=== PATIENT | female | born 1995 | race Caucasian/White ===

== ENCOUNTER 2017-06-26 00:58 | Inpatient (IN) | payer OTHER ==
[~2017-06-26] VITALS: Ht 157.5 cm; Wt 62.6 kg
[~2017-06-26 00:58] MED LIST: DICY20TA PO; PREVACID30 MG PO; URETRON DS1 TAB PO
[2017-06-26] MEDS ORDERED: PRENATAL 19 TA1 EACH PO (02:54)
== END 2017-06-27 09:27 | disposition home or self-care (01) | DRG 778 ==
LOC: OBS/DEL 00:58 → LDR 15:14
PROC: BY4FZZZ Ultrasonography of Third Trimester, Single Fetus (ICD-10-PCS; principal; 2017-06-26)
PROC: BU4CZZZ Ultrasonography of Uterus and Ovaries (ICD-10-PCS; 2017-06-26)
PROC: 4A1HXCZ Monitoring of Products of Conception, Cardiac Rate, External Approach (ICD-10-PCS; 2017-06-26)
DX: O20.0 Threatened abortion (principal); Z3A.32 32 weeks gestation of pregnancy; O26.893 Other specified pregnancy related conditions, third trimester; K29.00 Acute gastritis without bleeding

== ENCOUNTER 2021-01-27 16:20 | Outpatient (CLI) | payer OTHER ==
[~2021-01-27 16:20] MED LIST changes: +PRENATAL 19 TA1 EACH PO
== END 2021-01-27 16:50 | disposition home or self-care (01) ==
LOC: NST 16:20
PROVIDERS: ATTEND Specialist
DX: Z34.83 Encounter for supervision of other normal pregnancy, third trimester (principal)

== ENCOUNTER 2021-01-29 18:28 | Outpatient (CLI) | payer OTHER | END 2021-01-30 11:55 | disposition home or self-care (01) | LOC: OBS/DEL 18:28 | PROVIDERS: ATTEND Specialist | DX: O47.1 False labor at or after 37 completed weeks of gestation (principal); O24.410 Gestational diabetes mellitus in pregnancy, diet controlled; O23.33 Infections of other parts of urinary tract in pregnancy, third trimester; N39.0 Urinary tract infection, site not specified; O99.820 Streptococcus B carrier state complicating pregnancy; O34.211 Maternal care for low transverse scar from previous cesarean delivery; Z3A.37 37 weeks gestation of pregnancy; Z20.822 Contact with and (suspected) exposure to COVID-19 ==

== ENCOUNTER 2021-02-08 06:47 | Inpatient (IN) | payer OTHER ==
[~2021-02-08] VITALS: Ht 157.5 cm; Wt 81.6 kg
[2021-02-08] MEDS ORDERED: FOLIC ACID20 MG (11:19)
== END 2021-02-11 15:19 | disposition home or self-care (01) | DRG 788 ==
LOC: OB/GYN 07:45 → LDR 07:45 → OB/GYN 09:49
PROVIDERS: ADMIT Specialist; ATTEND Specialist
PROC: 4A1HXFZ Monitoring of Products of Conception, Cardiac Rhythm, External Approach (ICD-10-PCS; 2021-02-08)
PROC: 10D00Z1 Extraction of Products of Conception, Low, Open Approach (ICD-10-PCS; principal; 2021-02-08 07:00)
DX: O34.211 Maternal care for low transverse scar from previous cesarean delivery (principal); O99.824 Streptococcus B carrier state complicating childbirth; O24.420 Gestational diabetes mellitus in childbirth, diet controlled; Z37.0 Single live birth; Z3A.38 38 weeks gestation of pregnancy

== ENCOUNTER 2022-11-14 12:51 | Inpatient (IN) | payer OTHER ==
[~2022-11-14] VITALS: Ht 157.5 cm; Wt 83.0 kg
[~2022-11-14 12:51] MED LIST changes: +FOLIC ACID20 MG
== END 2022-11-15 18:47 | disposition home or self-care (01) | DRG 745 ==
LOC: CIR.AMB 12:51 → OB/GYN 19:47
PROVIDERS: ADMIT Obstetrics & Gynecology Obstetrics; ATTEND Obstetrics & Gynecology Obstetrics
PROC: 0UB70ZZ Excision of Bilateral Fallopian Tubes, Open Approach (ICD-10-PCS; principal; 2022-11-14 17:45)
DX: Z30.2 Encounter for sterilization (principal); Z20.822 Contact with and (suspected) exposure to COVID-19